=== PATIENT | male | born 1990 | race Caucasian/White ===

== ENCOUNTER 2017-07-05 18:11 | Emergency (ER) | payer MEDICAID ==
[~2017-07-05] VITALS: Ht 172.7 cm; Wt 95.8 kg
[2017-07-05 18:25] VITALS: BP 126/71
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
[2017-07-05] MEDS ORDERED: KETOROLAC 60 MG/2 ML VIAL IM ONE (19:15)
[2017-07-05] MEDS ORDERED: ceFAZolin 1,000 MG VIAL IM ONE (19:15)
--- NOTE | 2017-07-05 19:50 | NUR ---
Patient being evaluated by physician at bedside.
[2017-07-05 20:03] VITALS: BP 125/69
--- NOTE | 2017-07-05 20:09 | NUR ---
Patient discharged with v/s stable. Written and verbal after care instructions given and explained. Patient alert, oriented and verbalized understanding of instructions. Ambulatory with steady gait. All questions addressed prior to discharge. ID band removed. Patient advised to follow up with PMD. Rx of NAPROSYN 500MG, KEFLEX 500MG given. Patient educated on indication of medication including possible reaction and side effects. Opportunity to ask questions provided and answered. Addendum: 07/05/17 at 2023 by JONAS DC BY
== END 2017-07-05 20:03 | disposition home or self-care (01) ==
LOC: MED 18:11
DX: L03.211 Cellulitis of face (principal); H65.92 Unspecified nonsuppurative otitis media, left ear; I10 Essential (primary) hypertension; Z88.1 Allergy status to other antibiotic agents; Z88.2 Allergy status to sulfonamides
CPT/HCPCS: 96372; 99284; J0690; J1885

== ENCOUNTER 2019-04-22 12:10 | Emergency (ER) | payer SELFPAY ==
[~2019-04-22] VITALS: Ht 175.3 cm; Wt 101.6 kg
[2019-04-22 12:18] VITALS: BP 141/75
--- NOTE | 2019-04-22 12:25 | NUR ---
Pt taken to bed 5.
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
[2019-04-22] MEDS ORDERED: DOXYCYCLINE 100 MG CAP PO SCH (12:55)
[2019-04-22] MEDS ORDERED: KETOROLAC 30 MG/ML VIAL IM ONE (12:55)
[2019-04-22] MEDS ORDERED: cefTRIAXone 250 MG in LIDOCAINE MPF 1% 0.9 ML IM ONE (12:55)
[2019-04-22] MEDS ORDERED: metroNIDAZOLE 250 MG TAB PO ONE (12:55)
[2019-04-22] MEDS ORDERED: LIDOCAINE MPF 1% 5 ML ONE (13:13)
[2019-04-22] MEDS ORDERED: cefTRIAXone 250 MG VIAL ONE (13:13)
[2019-04-22 13:20] LABS: APPEARANCE,URINE HAZY (CLEAR); BILIRUBIN,URINE 1+ (NEGATIVE); BLOOD, URINE 1+ (NEGATIVE); COLOR,URINE YELLOW (YELLOW); LEUKOCYTE ESTERASE ,URINE 2+ (NEGATIVE); NITRITE, URINE NEGATIVE (NEGATIVE); UGLUCOSE NEGATIVE (NEGATIVE)
[2019-04-22 13:24] LABS: WBC,URINE 80-100 /HPF (0-5)
[2019-04-22 13:26] LABS: TRIPLE PHOSPHATE CRYSTAL,UR 0-10 /HPF (None Seen)
[2019-04-22] MEDS ORDERED: metroNIDAZOLE 250 MG TAB ONE (14:00)
--- NOTE | 2019-04-22 14:37 | NUR ---
Patient discharged with v/s stable. Written and verbal after care instructions ABOUT EPIDIDYMIS AND SEXUALLY TRANSMITTED DISEASE given and explained. Patient alert, oriented and verbalized understanding of instructions. Ambulatory with steady gait. All questions addressed prior to discharge. ID band removed. Patient advised to follow up with PMD. Rx of MOTRIN AND DOXYCYCLINE given. Patient educated on indication of medication including possible reaction and side effects. Opportunity to ask questions provided and answered.
[2019-04-22 14:43] VITALS: BP 141/80
[2019-04-25 08:07] LABS: CHLAMYDIA TRACHOMATIS AMP DNA Negative (Negative)
--- NOTE | 2019-04-25 10:42 | NUR ---
URINE CULTURES RECEIVED IN ED, PT RECEIVED PRESCRIPTION FOR DOXYCYCLINE 100MG AND RECEIVED TX IN ED. RESULTS SHOWN TO DR. GOODMAN AND NO NEW MEDICATIONS NEEDED. PT TREATED APPROPRIATELY.
== END 2019-04-22 14:37 | disposition home or self-care (01) ==
LOC: MED 12:10
DX: N50.3 Cyst of epididymis (principal); N43.2 Other hydrocele; I10 Essential (primary) hypertension; F17.210 Nicotine dependence, cigarettes, uncomplicated; Z88.1 Allergy status to other antibiotic agents; Z88.2 Allergy status to sulfonamides
CPT/HCPCS: 36415; 76870; 81001; 87086; 87491; 96372; 99284; J0696; J1885; J2001; Q0092

== ENCOUNTER 2021-05-02 23:55 | Emergency (ER) | payer MEDICAID, OTHER ==
[~2021-05-02] VITALS: Ht 167.6 cm; Wt 102.5 kg
[2021-05-03 01:27] VITALS: BP 129/77
--- NOTE | 2021-05-03 01:28 | NUR ---
PT EXAMINED BY DR. MATTHEW IN TRIAGE
--- NOTE | 2021-05-03 01:36 | NUR ---
VERBAL DISCHRAGE PROVIDED BY DR. MATTHEW. PT LEFT FACILITY AT THIS TIME.
== END 2021-05-03 01:36 | disposition home or self-care (01) ==
LOC: MED 23:55
DX: K14.0 Glossitis (principal); R07.0 Pain in throat; I10 Essential (primary) hypertension; F17.210 Nicotine dependence, cigarettes, uncomplicated; Z71.6 Tobacco abuse counseling
CPT/HCPCS: 99281

== ENCOUNTER 2023-01-31 23:03 | Emergency (ER) | payer SELFPAY | END 2023-01-31 23:37 | disposition left against medical advice (07) | LOC: MED 23:03 | DX: R53.81 Other malaise (principal); Z53.21 Procedure and treatment not carried out due to patient leaving prior to being seen by health care provider ==